=== PATIENT | male | born 1930 | race Caucasian/White ===

== ENCOUNTER 2018-01-09 21:24 | Inpatient (IN) | payer OTHER ==
[2018-01-10 00:01] LABS: ABNORMAL IP MESSAGE 1; HEMOGLOBIN 9.7 g/dl (14.0-18.0); MEAN CORPUSCULAR HEMOGLOBIN 27.2 pg (29.0-33.0); MEAN CORPUSCULAR HGB CONC 31.3 g/dl (32.0-37.0); MEAN CORPUSCULAR VOLUME 87.1 fl (82.0-101.0); MEAN PLATELET VOLUME 11.5 fl (7.4-10.4); PLATELET COUNT 81 10^3/UL (140-415); POSITIVE DIFF @See below; RED BLOOD COUNT 3.56 10^6/ul (4.70-6.10); RED CELL DISTRIBUTION WIDTH 17.6 % (11.5-14.5)
[2018-01-10] MEDS: ACETAMINOPHEN 325 MG TAB PO (00:14)
[2018-01-10 00:17] LABS: ADD MAN DIFF? YES
[2018-01-10 00:19] LABS: ALANINE AMINOTRANSFERASE 30 IU/L (13-69); ALBUMIN 3.2 g/dl (3.3-4.9); ALBUMIN/GLOBULIN RATIO 1.06; ALKALINE PHOSPHATASE 107 IU/L (42-121); ANION GAP 9 (8-16); ASPARTATE AMINO TRANSFERASE 27 IU/L (15-46); BILIRUBIN,INDIRECT 0.7 mg/dl (0-1.1); BILIRUBIN,TOTAL 0.7 mg/dl (0.2-1.3); BLOOD UREA NITROGEN 23 mg/dl (7-20); CALCIUM 8.7 mg/dl (8.4-10.2); CARBON DIOXIDE 33 mmol/L (21-31); CHLORIDE 94 mmol/L (97-110); CREATININE 1.22 mg/dl (0.61-1.24); GLUCOSE 162 mg/dl (70-220); INR 0.93; PROTIME 12.6 Sec (11.9-14.9); SODIUM 133 mmol/L (135-144); TOTAL PROTEIN 6.2 g/dl (6.1-8.1)
[2018-01-10 00:20] LABS: PARTIAL THROMBOPLASTIN TIME 23.3 Sec (25.0-35.0)
[2018-01-10 00:31] LABS: B-TYPE NATRIURETIC PEPTIDE 2040 PG/ML (0-450); TROPONIN-I 0.069 ng/ml (0.000-0.120)
[2018-01-10 00:43] LABS: MAGNESIUM 1.5 mg/dl (1.7-2.5)
[2018-01-10 01:15] LABS: URINE BLOOD (Dip) POC Trace-intact (NEGATIVE); URINE GLUCOSE (Dip) POC Negative (NEGATIVE); URINE KETONES (Dip) POC Negative (NEGATIVE); URINE LEUKOCYTE EST (Dip) POC Negative (NEGATIVE); URINE NITRITE (Dip) POC Negative (NEGATIVE); URINE TOTAL PROTEIN POC 1+ (NEGATIVE)
[2018-01-10] MEDS: SOD CHLORIDE 0.9% IV (01:57)
[2018-01-10] MEDS: PIPER-TAZO 3.375 GM IV (PMX) 100 ML IVPB (01:58)
[2018-01-10] MEDS: POTASSIUM CHLORIDE 100 ML IVPB ×2 (02:03→04:33)
[2018-01-10] MEDS: MAGNESIUM OXIDE 400 MG TAB PO (02:04)
[2018-01-10 02:41] LABS: LACTIC ACID 0.8 mmol/L (0.5-2.0)
[2018-01-10] MEDS: VANCOMYCIN 1 GM (PMX) 250 ML IVPB (02:51)
[2018-01-10 03:03] LABS: ANISOCYTOSIS 1+ (0-0); BAND NEUTROPHILS % (M) 27 % (0-4); ERYTHROBLAST% (NRBC) (M) 1 % (0-0); GIANT THROMBO% (M) 1 % (0-0); LYMPHOCYTES #M 0.4 10^3/ul (0.8-2.9); LYMPHOCYTES % (M) 12 % (15-51); METAMYELOCYTES #M 0.1 10^3/ul (0.0-0.0); METAMYELOCYTES %M 3 % (0-0); MONOCYTE #M 0.8 10^3/ul (0.3-0.9); MONOCYTES % (M) 22 % (0-11); MYELOCYTES % (M) 2 % (0-0); OVALOCYTES 1+ (0-0); PLATELET ESTIMATE DECREASED; POIKILOCYTOSIS 1+ (0-0); POLYCHROMASIA 2+ (0-0); REACTIVE LYMPHOCYTES #M 0.1 10^3/ul (0.0-0.0); REACTIVE LYMPHOCYTES% (M) 4 % (0-0); SEG NEUT #M 1.2 10^3/ul (1.6-7.5); SEGMENTED NEUTROPHILS (M) % 30 % (39-77); SMUDGE%M 8 % (0-0)
[2018-01-10 06:20] LABS: LACTIC ACID 0.7 mmol/L (0.5-2.0)
[2018-01-10] MEDS: hydrALAzine 20 MG INJ IV (06:50)
[2018-01-10] MEDS ORDERED: ACETAMINOPHEN 325 MG TAB PO (07:30)
[2018-01-10] MEDS ORDERED: IXAZOMIB CITRATE 4 MG PO (07:30)
[2018-01-10] MEDS ORDERED: ONDANSETRON 4 MG INJ IV (07:30)
[2018-01-10] MEDS ORDERED: NACL 0.9% 3 ML SYG IV (07:30)
[2018-01-10 08:40] LABS: ADD MAN DIFF? NO
[2018-01-10 08:45] LABS: WHITE BLOOD COUNT 4.4 10^3/ul (4.8-10.8)
[2018-01-10 08:45] LABS: ABNORMAL IP MESSAGE 1; HEMATOCRIT 28.8 % (42.0-52.0); HEMOGLOBIN 8.8 g/dl (14.0-18.0); LYMPHOCYTES # 1.1 10^3/ul (0.8-2.9); LYMPHOCYTES % 24.1 % (15.0-51.0); MEAN CORPUSCULAR HEMOGLOBIN 26.7 pg (29.0-33.0); MEAN CORPUSCULAR HGB CONC 30.6 g/dl (32.0-37.0); MEAN CORPUSCULAR VOLUME 87.3 fl (82.0-101.0); MEAN PLATELET VOLUME 13.5 fl (7.4-10.4); MONOCYTE # 0.8 10^3/ul (0.3-0.9); MONOCYTES % 17.2 % (0.0-11.0); NEUTROPHIL # 2.5 10^3/ul (1.6-7.5); PLATELET COUNT 70 10^3/UL (140-415); POSITIVE DIFF @See below; RED CELL DISTRIBUTION WIDTH 17.8 % (11.5-14.5)
[2018-01-10] MEDS ORDERED: ALBUTEROL/IPRATROPIUM (NEB) 3 ML AMP HHN (09:00)
[2018-01-10] MEDS: TAMSULOSIN (SR) 0.4 MG CAP PO (09:01)
[2018-01-10] MEDS: CEFTRIAXONE 1 GM/50 ML (PMX) 50 ML IVPB (09:02)
[2018-01-10 09:03] LABS: ALANINE AMINOTRANSFERASE 30 IU/L (13-69); ALBUMIN 2.7 g/dl (3.3-4.9); ALBUMIN/GLOBULIN RATIO 1.03; ALKALINE PHOSPHATASE 88 IU/L (42-121); ANION GAP 10 (8-16); ASPARTATE AMINO TRANSFERASE 22 IU/L (15-46); BILIRUBIN,INDIRECT 0.7 mg/dl (0-1.1); BILIRUBIN,TOTAL 0.7 mg/dl (0.2-1.3); BLOOD UREA NITROGEN 19 mg/dl (7-20); CALCIUM 7.9 mg/dl (8.4-10.2); CARBON DIOXIDE 28 mmol/L (21-31); CHLORIDE 101 mmol/L (97-110); GLUCOSE 127 mg/dl (70-220); MAGNESIUM 1.5 mg/dl (1.7-2.5); PHOSPHORUS 2.5 mg/dl (2.5-4.9); POTASSIUM 3.3 mmol/L (3.5-5.1); SODIUM 136 mmol/L (135-144); TOTAL PROTEIN 5.3 g/dl (6.1-8.1)
[2018-01-10] MEDS: AZITHROMYCIN 500MG/NS (PMX) 250 ML IVPB (10:20)
[2018-01-10] MEDS: DEXAMETHASONE 4 MG TAB PO ×2 (10:21→20:18)
[2018-01-10 10:44] LABS: ANISOCYTOSIS 1+ (0-0); BAND NEUTROPHILS #M 1.6 10^3/ul (0.0-0.6); BAND NEUTROPHILS % (M) 38 % (0-4); LYMPHOCYTES % (M) 24 % (15-51); MICROCYTOSIS 1+ (0-0); MONOCYTE #M 0.4 10^3/ul (0.3-0.9); MONOCYTES % (M) 11 % (0-11); PLATELET ESTIMATE DECREASED; POIKILOCYTOSIS 2+ (0-0); POLYCHROMASIA 3+ (0-0); REACTIVE LYMPHOCYTES% (M) 2 % (0-0); SEG NEUT #M 1.2 10^3/ul (1.6-7.5); SEGMENTED NEUTROPHILS (M) % 25 % (39-77); SMUDGE%M 7 % (0-0)
[2018-01-11 05:50] LABS: ADD MAN DIFF? NO
[2018-01-11 05:58] LABS: ABNORMAL IP MESSAGE 1; HEMATOCRIT 29.6 % (42.0-52.0); HEMOGLOBIN 9.1 g/dl (14.0-18.0); LYMPHOCYTES % 19.1 % (15.0-51.0); MEAN CORPUSCULAR HEMOGLOBIN 26.3 pg (29.0-33.0); MEAN CORPUSCULAR HGB CONC 30.7 g/dl (32.0-37.0); MEAN CORPUSCULAR VOLUME 85.5 fl (82.0-101.0); MEAN PLATELET VOLUME 12.9 fl (7.4-10.4); MONOCYTE # 0.6 10^3/ul (0.3-0.9); MONOCYTES % 11.1 % (0.0-11.0); NEUTROPHIL # 3.6 10^3/ul (1.6-7.5); NEUTROPHILS % 69.4 % (39.0-77.0); PLATELET COUNT 70 10^3/UL (140-415); POSITIVE DIFF @See below; RED BLOOD COUNT 3.46 10^6/ul (4.70-6.10); RED CELL DISTRIBUTION WIDTH 17.5 % (11.5-14.5)
[2018-01-11 05:58] LABS: WHITE BLOOD COUNT 5.1 10^3/ul (4.8-10.8)
[2018-01-11 06:42] LABS: ALANINE AMINOTRANSFERASE 25 IU/L (13-69); ALBUMIN 2.7 g/dl (3.3-4.9); ALKALINE PHOSPHATASE 102 IU/L (42-121); ANION GAP 10 (8-16); ASPARTATE AMINO TRANSFERASE 15 IU/L (15-46); BILIRUBIN,INDIRECT 0.3 mg/dl (0-1.1); BILIRUBIN,TOTAL 0.3 mg/dl (0.2-1.3); BLOOD UREA NITROGEN 17 mg/dl (7-20); CALCIUM 8.6 mg/dl (8.4-10.2); CARBON DIOXIDE 29 mmol/L (21-31); CHLORIDE 102 mmol/L (97-110); GLUCOSE 157 mg/dl (70-220); POTASSIUM 3.8 mmol/L (3.5-5.1); SODIUM 137 mmol/L (135-144); TOTAL PROTEIN 5.4 g/dl (6.1-8.1)
[2018-01-11 07:18] LABS: PHOSPHORUS 2.8 mg/dl (2.5-4.9)
[2018-01-11 07:18] LABS: MAGNESIUM 1.6 mg/dl (1.7-2.5)
[2018-01-11] MEDS: CEFTRIAXONE 1 GM/50 ML (PMX) 50 ML IVPB (08:43)
[2018-01-11] MEDS: DEXAMETHASONE 4 MG TAB PO ×2 (08:44→20:51)
[2018-01-11] MEDS: TAMSULOSIN (SR) 0.4 MG CAP PO (08:44)
[2018-01-11] MEDS: AZITHROMYCIN 500MG/NS (PMX) 250 ML IVPB (09:34)
[2018-01-11] MEDS: hydrALAzine 20 MG INJ IV ×2 (11:59→16:59)
[2018-01-11] MEDS: MAGNESIUM SULFATE 2 GM/50 ML 50 ML IVPB (23:00)
[2018-01-12] MEDS: AZITHROMYCIN 500MG/NS (PMX) 250 ML IVPB (07:59)
[2018-01-12] MEDS: CEFTRIAXONE 1 GM/50 ML (PMX) 50 ML IVPB (07:59)
[2018-01-12] MEDS: TAMSULOSIN (SR) 0.4 MG CAP PO (07:59)
[2018-01-12] MEDS: DEXAMETHASONE 4 MG TAB PO (07:59)
== END 2018-01-12 13:16 | disposition home or self-care (01) | DRG 871 ==
LOC: E/R 21:24 → 6WM 01-10 02:39
DX: A41.9 Sepsis, unspecified organism (principal); J18.9 Pneumonia, unspecified organism; E83.42 Hypomagnesemia; I12.9 Hypertensive chronic kidney disease with stage 1 through stage 4 chronic kidney disease, or unspecified chronic kidney disease; N18.9 Chronic kidney disease, unspecified; N40.1 Benign prostatic hyperplasia with lower urinary tract symptoms; R33.8 Other retention of urine; E87.6 Hypokalemia; Y95 Nosocomial condition; Z79.82 Long term (current) use of aspirin; Z85.79 Personal history of other malignant neoplasms of lymphoid, hematopoietic and related tissues
CPT/HCPCS: 36415; 71045; 76775; 80053; 81003; 83605; 83735; 83880; 84100; 84484; 85025; 85610; 85730; 87040; 87086; 93005; 93306; 93970; 96365; 99291-25